=== PATIENT | male | born 1945 | race Caucasian/White ===

== ENCOUNTER → 2016-09-02 | Outpatient (CLI) | payer MEDICARE, OTHER ==
--- NOTE | 2016-09-02 11:11 | RADIOLOGY REPORT PS360 ---
CHEST(2 VIEWS-NOT PORTABLE) COMPARISON: None HISTORY: Wheezing TECHNIQUE: PA and lateral chest FINDINGS: The lung francis are well expanded and appear clear of infiltrate. The cardiac silhouette and vascularity are normal and the costophrenic angles are clear. There is minor diffuse dextroscoliotic curvature of the lower thoracic spine.. IMPRESSION: Nonacute chest findings
== END ==
LOC: RAD 10:31
DX: J44.1 Chronic obstructive pulmonary disease with (acute) exacerbation (principal); R04.2 Hemoptysis